=== PATIENT | female | born 1950 | race African-American/Black ===

== ENCOUNTER 2017-12-30 07:08 | Emergency (ER) | payer MEDICARE ==
[2017-12-30] MEDS ORDERED: FLUORESCEIN OPHTH TEST STRIP. (07:52)
[2017-12-30] MEDS ORDERED: TETRACAINE 0.5% OPHTH SOLUTION 4ML BOTTLE. (07:52)
[2017-12-30] MEDS: DIPHTH,PERTUSS(ACELL),TET TOX 0.5 ML DISP.SYRIN. VAX IM (09:09)
== END 2017-12-30 09:06 | disposition home or self-care (01) ==
LOC: ER 09:06
DX: S05.01XA Injury of conjunctiva and corneal abrasion without foreign body, right eye, initial encounter (principal); F12.10 Cannabis abuse, uncomplicated; Z88.5 Allergy status to narcotic agent; W22.8XXA Striking against or struck by other objects, initial encounter; Y93.89 Activity, other specified; Y99.8 Other external cause status; Y92.89 Other specified places as the place of occurrence of the external cause
CPT/HCPCS: 90471; 90715; 99283-25